=== PATIENT | female | born 1965 | race Caucasian/White ===

== ENCOUNTER → 2017-06-07 | Day surgery (SDC) | payer OTHER ==
[~2017-06-07] MED LIST: ACETAMINOPHEN 1000 MG/100 ML 100 ML IV ONE; ACETAMINOPHEN/HYDROcodone 325 MG/5 MG TAB ONE; ATOR20TA42 PO; CLIN200T PO; GLIM4TAB PO; LACTATED RINGER'S 1000 ML INJ 1,000 ML ONE; LANTUSP SQ; LEVO75TA3 PO; LIDOCAINE 2%/EPINEPHrine PF 1:200,000 20ML SDV ONE; MIDAZOLAM HCL 2 MG/2 ML VIAL ONE; ONDANSETRON HCL 4 MG/2 ML VIAL IV PUSH ONE; PROPOFOL 200 MG/20 ML AMP IV ONE; SODIUM CHLOR 0.9% 250 ML BAG IV ONE; VANCOMYCIN HCL 1000 MG VIAL ONE; ceFAZolin INJ 1,000 MG VIAL ONE
--- NOTE | 2017-06-07 13:21 | MP ---
cc: DAARSH LIRIANO M.D.,STUART PRUITT,ZAIRE Allison M.D. DATE OF SURGERY: 06/07/2017 PREOPERATIVE DIAGNOSIS Left breast persistent mass with previous infection and duct infection. POSTOPERATIVE DIAGNOSIS Left breast persistent mass with previous infection and duct infection. ANESTHESIA LMA. SURGEON Amilcar. ESTIMATED BLOOD LOSS Less than 5 mL. FLUIDS 650 mL crystalloid. COMPLICATIONS None. DRAINS None. SPECIMEN Left breast tissue to pathology. PROCEDURE IN DETAIL The patient was seen in the holding area and the left breast area of concern was marked by the undersigned and confirmed by the patient. She was taken to the operating room and placed on the operating table in the supine position. After an adequate level of laryngeal mask anesthesia was achieved, the left breast was prepped and draped in the field. A jam-shaped incision was made after a timeout was taken confirming the correct patient, site and procedure to be performed. Local anesthetic was injected into the site before incision. Dissection was carried down around the patient's previous scar and included tissue underneath the skin that comprised the scar tissue, as well as a small wedge of the areola. The wound was made hemostatic and the tissue passed off the table. The specimen was submitted in formalin. The wound was closed in two layers with interrupted 3-0 Vicryl suture and 5-0 PDS in a running subcuticular fashion. The wound was dressed with Steri-Strips. The patient was taken back to the recovery room in stable condition. Sponge, needle and instrument counts were reported to be correct. MD NAIDA Wallace/WOO /11:46 AM /1:06 PM ANNA
== END | disposition home or self-care (01) ==
LOC: ESDC 07:51
PROVIDERS: ATTEND Surgery Trauma Surgery
DX: D24.2 Benign neoplasm of left breast (principal)
CPT/HCPCS: 00400; 19120; 88307; J0131; J0690; J2250; J2405; J3010; J3370; J7050; J7120